=== PATIENT | female | born 1965 | race Caucasian/White ===

== ENCOUNTER → 2019-02-16 | Day surgery (SDC) | payer BC ==
--- NOTE | 2019-02-16 09:34 | MMO ---
STEREOTACTIC GUIDED BIOPSY LEFT BREAST MICROCALCIFICATIONS SURGICAL SPECIMEN MAMMOGRAPHY LEFT DIAGNOSTIC MAMMOGRAM POST BIOPSY HISTORY: Suspicious microcalcifications left breast. FINDINGS: After explaining the procedure and answering all questions, extensive attempt to visualize the microcalcification cluster deep within the left breast was undertaken. Calcifications were not seen from the lateral approach. They were seen deep within the inferior aspect of the left breast on the medial approach. Sterile technique, buffered local anesthesia, stereotactic guidance, and a medial approach were used to carefully advance a 10-gauge vacuum-assisted needle to the level of the microcalcifications. A total of 8 vacuum-assisted specimens were obtained. Specimen mammography shows the microcalcifications in the sample. Localization clip was placed in the biopsy bed under stereotactic guidance. Needle removed. Patient tolerated the procedure well and was eventually dismissed in good condition. Postprocedure mammogram shows scattered fibroglandular densities. Localization clip and small pockets of gas are now present deep within the inferior aspect of the left breast in region of biopsy. Microcalcifications no longer seen. Biopsy site unable to be visualized on the CC view, correlating w ith findings on prior diagnostic mammogram evaluation. IMPRESSION: Technically successful stereotactic guided biopsy left breast microcalcifications. Pathol ogy is pending.
== END ==
LOC: MAMMO 06:59
PROC: 0H95XZX Drainage of Chest Skin, External Approach, Diagnostic (ICD-10-PCS; principal; 2019-02-16)
DX: N60.22 Fibroadenosis of left breast (principal)
CPT/HCPCS: 19081; 76098; 88305; 88341; 88342